=== PATIENT | female | born 2000 | race Caucasian/White ===

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

== ENCOUNTER 2020-01-11 20:39 | Inpatient (IN) | payer MEDICAID, SELFPAY ==
[2020-01-11 17:59] VITALS: BP 134/92; PULSE 96; RESP 18; TEMP 36.7; O2SAT 96; BMI 30.9
[2020-01-11 20:27] LABS: Basophils % 0.1 % (0.1-2.0); Eosinophils % 0.2 % (0.1-12.0); Hematocrit 42.5 % (37.0-47.0); Hemoglobin 14.2 g/dL (12.2-16.2); Lymphocytes # 1.1 K/mm3 (0.7-4.5); Lymphocytes % 10.8 % (10-50); MANUAL DIFFERENTIAL MANUAL DIFFERENTIAL (MANUAL DIFF); Mean Corpuscular HGB Conc 33.3 g/dL (31.8-35.4); Mean Corpuscular Hemoglobin 30.3 pg (27.0-31.2); Mean Corpuscular Volume 90.9 fl (81-99); Mean Platelet Volume 8.7 fl (7.4-10.4); Monocytes # 0.4 K/mm3 (0.1-1.0); Monocytes % 3.9 % (1.7-9.3); Platelet Count 308 K/mm3 (142-424); Red Blood Count 4.68 M/mm3 (4.20-5.40); Red Cell Distribution Width 13.9 % (11.5-17.5); White Blood Count 10.6 K/mm3 (4.5-13.0)
[2020-01-11 20:36] LABS: Lymphocytes % 12 % (10-50); Monocytes % 3 % (2-9); Neutrophils % 83 % (42-76); Platelet Estimate Normal; RBC Morphology Normal; Total Cells Counted 100
[2020-01-11 20:45] LABS: Coronavirus 19 IgG Antibody Negative (Negative); Coronavirus 19 IgM Antibody Negative (Negative)
[2020-01-11 21:04] VITALS: BP 146/87; PULSE 118; RESP 18; TEMP 37; O2SAT 98
[2020-01-11 21:41] VITALS: BMI 31.8
[2020-01-12 00:44] LABS: Appearance,Urine CLEAR (Clear); Bilirubin,Urine Negative (Negative); Blood, Urine Negative (Negative); Glucose,Urine (UA) Negative (Negative); Ketones,Urine Negative (Negative); Leukocyte Esterase,Urine Negative (Negative); Microscopic, Urine URINE MICROSCOPIC (MICROSCOPIC); Nitrate,Urine Negative (Negative); PH,Urine 6.5 (5.0-8.5); Protein,Urine TRACE (Negative); Urobilinogen,Urine 0.2 EU/dl (0.2)
[2020-01-12 00:46] LABS: Color,Urine Dark Yellow (Yellow)
[2020-01-12 00:51] LABS: Bacteria,Urine 1+ /lpf; Mucus,Urine 1+ /lpf
[2020-01-12 01:49] LABS: Opiate Screen,Urine Negative ng/ml (<300)
[2020-01-12 01:50] LABS: Phencyclidine Screen,Urine Negative ng/ml (<25)
[2020-01-12 02:00] LABS: Barbiturates Screen,Urine Negative ng/ml (<200)
[2020-01-12 02:01] LABS: Benzodiazepines Screen,Urine Negative ng/ml (<200)
[2020-01-12 02:02] LABS: Amphetamine/Metha Screen,Urine Negative ng/ml (<1000); Cocaine Screen,Urine Negative ng/ml (<300)
[2020-01-12 02:03] LABS: Methadone Screen,Urine Negative ng/ml (<300)
[2020-01-12 02:04] LABS: Cannabinoid Screen,Urine Negative ng/ml (<50)
--- NOTE | 2020-01-12 10:15 | HMH.HPDC ---
General - General Admission date:: 01/11/20 Discharge date: 01/12/20 (Left AMA) *Admission Date: 01/11/20 *Chief complaint: contractions *History of present illness: G1 @ 39 6/7 presented to OB triage for evaluation of abdominal pain/contractions, nausea and vomiting Upon assessment, she was having regular contractions q3-5 minutes with no vaginal bleeding or leakage of fluid Cervix 3/75/-2 and status reassuring overall but did show some mild variable decelerations She was admitted for observation with diagnosis of latent labor and advised of recommendation for augmentation of labor with IV pitocin beginning the following morning At 4am the following morning, the patient refused to allow nursing staff to examine her, and informed staff of her decision to leave the hospital because she wanted to labor at home naturally She was again advised that physician recommendation was to remain in hospital with continuous monitoring and IOL, which she refused care had been similarly affected over the past few weeks, with patient refusing to allow physician to examine her for cervical dilation/effacement She signed out of the hospital against medical advice on 01/11/21 around 4:30am [facility] History I have reviewed the patient's past medical history: Yes Medical History: Denies:: Diabetes Mellitus Type 1, Diabetes Mellitus Type 2 *Have you ever received a pneumonia vaccine?: No *Have you received a flu vaccine this season?: No Other Medical History: Reports: Other Laterality Cases: Right: Other Other Surgeries: No: Amputation: No Fractures: Yes - *Social History Smoking Status: Never smoker Alcohol Intake: never Substance Use Type: denies use *Occupational Status:: other *Travel in the last 8 weeks: None Family Hx:: Non-contributory Para: 0 Review of Systems - Review of Systems Review of systems:: pertinent systems reviewed and negative unless documented below - *Gastrointestinal Reports abdominal pain, Reports nausea, Reports vomiting - *Genitourinary Reports other (contractions) Exam Vital signs and Labs for Last 24 Hours: Temp Pulse Resp BP Pulse Ox 98.6 F 118 H 18 146/87 H 98 01/11/20 21:04 01/11/20 21:04 01/11/20 21:04 01/11/20 21:04 01/11/20 21:04 Laboratory Results - last 24 hr 01/11/20 19:49: WBC 10.6, RBC 4.68, Hgb 14.2, Hct 42.5, MCV 90.9, MCH 30.3, MCHC 33.3, RDW 13.9, Plt Count 308, MPV 8.7, Neut % (Auto) 85.0 H, Lymph % (Auto) 10.8, [place] % (Auto) 3.9, Eos % (Auto) 0.2, Baso % (Auto) 0.1, Neut # (Auto) 9.0 H, Lymph # (Auto) 1.1, [place] # (Auto) 0.4, Eos # (Auto) 0.0, Baso # (Auto) 0.0, Total Counted 100, Neutrophils % (Manual) 83 H, Band Neutrophils % 2.0, Lymphocytes % (Manual) 12, Monocytes % (Manual) 3, Platelet Estimate Normal, RBC Morphology Normal 01/11/20 19:49: SARS-CoV-2 IgG Ab (Rapid) Negative, SARS-CoV-2 IgM Ab (Rapid) Negative 01/11/20 19:49: Blood Type A Positive, Antibody Screen Negative 01/12/20 00:15: Urine Color Dark yellow, Urine Appearance Clear, Urine pH 6.5, Ur Specific [place] 1.020, Urine Protein Trace, Urine Glucose (UA) Negative, Urine Ketones Negative, Urine Blood Negative, Urine Nitrate Negative, Urine Bilirubin Negative, Urine Urobilinogen 0.2, Ur Leukocyte Esterase Negative, Urine WBC 3-5, Ur Squamous Epith Cells 3-5, Urine Bacteria 1+, Urine Mucus 1+ 01/12/20 00:15: Urine Opiates Screen Negative, Urine Methadone Screen Negative, Ur Barbituates Screen Negative, Ur Phencyclidine Scrn Negative, Ur Amphetamines Screen Negative, U Benzodiazepines Scrn Negative, Urine Cocaine Screen Negative, U Marijuana (THC) Screen Negative I & O for Last 24 hours: Intake & Output 01/09/20 01/10/20 01/11/20 01/12/20 11:59 11:59 11:59 11:59 Weight 203 lb - *Routine HEENT Exam Head: Present: normocephalic Eye: Present: EOMI ENT: Present: mucous membranes moist - *Routine Neck Exam Present: supple. Absent: lymphadenopathy - *Routine Respiratory Exam Pre
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
== END 2020-01-12 04:25 | disposition left against medical advice (07) | DRG 833 ==
LOC: OBOUT 20:41 → OB 20:41
PROVIDERS: Admitting Provider Obstetrics & Gynecology; Visit Provider Obstetrics & Gynecology
DX: O60.03 Preterm labor without delivery, third trimester (principal); Z3A.39 39 weeks gestation of pregnancy
CPT/HCPCS: 59025; 80305; 81001; 85007; 85025; 86328; 86850; 96360

== ENCOUNTER 2020-01-12 15:51 | Inpatient (IN) | payer MEDICAID, SELFPAY ==
[2020-01-12] VITALS (13 sets, daily range): BP systolic 136–159; BP diastolic 63–101; PULSE 99–111; RESP 18; TEMP 36.8; BMI 30.9; BMI 30.7
[2020-01-12 16:13] LABS: Fetal Membrane Rupture (Rapid) Positive (Negative)
--- NOTE | 2020-01-12 17:10 | HMH.OBAPHP ---
OB - H&P: HPI Antepartum - History of Present Illness Chief complaint: contractions History of present illness: 19 yo G1 @ 39 6/7 presented with complaint of contractions. Patient was admitted yesterday with contractions and elevated blood pressure, with recommendation for augmentation of labor She initially agreed to this plan but ultimately signed out advance medical advice 8 hours after admission, around 4:30 am today When she represented tonight, cervix 9cm and completely effaced, with BBOW Amniotomy was performed with thick meconium stained amniotic fluid FSE was placed without complication NST overall reassuring [facility] History I have reviewed the patient's past medical history: Yes Medical History: Denies:: Diabetes Mellitus Type 1, Diabetes Mellitus Type 2 *Have you ever received a pneumonia vaccine?: No *Have you received a flu vaccine this season?: No Other Medical History: Reports: Other Laterality Cases: Right: Other Other Surgeries: No: Amputation: No Fractures: Yes - *Social History Smoking Status: Never smoker Alcohol Intake: never Substance Use Type: denies use *Occupational Status:: other *Travel in the last 8 weeks: None Family Hx:: Non-contributory Review of Systems - Review of Systems Review of systems:: pertinent systems reviewed and negative unless documented below - *Genitourinary Reports other (contractions) Meds Home Medications Medication Instructions Recorded Confirmed Type Vit No.124/Iron/Folic 1 each PO DAILY 01/11/20 01/11/20 History [ Vitamin Tablet] Allergies Allergy/AdvReac Type Severity Reaction Status Date / Time No Known Allergies Allergy Verified 01/09/20 13:55 OB - H&P: Exam - Constitutional no acute distress - Routine HEENT Exam Head: Present: normocephalic, atraumatic Eye: Present: EOMI ENT: Present: mucous membranes moist - Routine Neck Exam Present: supple - Routine Respiratory Exam Present: CTA bilaterally. Absent: respiratory distress - Routine Cardiovascular Exam Present: RRR - Routine Abdominal Exam Present: soft. Absent: tenderness, distended - Routine Exam Comments: cervix 9/100/0 - Routine Extremities Exam Absent: edema - Routine Skin Exam Absent: rash - Routine Neurological Exam Present: alert, oriented X3 - Routine Psychiatric Exam Absent: normal affect Comments: Patient's affect is abnormal. She will not make eye contact with OB physician, Bull Gang Supervisor or nursing staff. She will only look at her , even while detailed questions are being asked of her, and she will not respond--prompting to respond for her. During labor, while pushing, at one point she said to her that she didn't want to push because she was afraid something would happen to him if she was focusing on pushing and not on him. Right before the delivery, a blanket was placed on her abdomen for the baby to be placed on while cutting umbilical cord, and she jerked back with alarm, stating I don't want him on me! She refused to hold the baby after delivery and when the nurse asked whether mother or father wanted to feed the baby, the patient refused to look at the nurse and the said you can do it to the nurse. Mother shows no interest in her baby and there is a significant and concerning inability to acknolwedge any care providers or anyone in the room other than her . Also of note, she refused to allow the OB physician to examine her during visits for the past 3 weeks, stating that she and her were old fashioned and she thought it was unnatural for the physician to do a pelvic exam. OB - A/P Antepartum (1) 39 weeks gestation of Status: Acute (2) Teen Status: Acute (3) Left against medical advice Status: Acute (4) Active labor at term Status: Acute (5) Inadequate bonding with Status: Acute - Ad
--- NOTE | 2020-01-12 18:06 | HMH.DN ---
- Delivery Note Delivery Date:: 01/12/20 Delivery Time:: 14:42 Anesthesia Type: None Was labor medically induced?: No Infant delivered prior to 39 weeks?: No Gender: Male at 1 minute: 8 at 5 minutes: 9 Delivery Procedure:: Vacuum assisted vaginal delivery of liveborn male over intact perineum. Indication for operative vaginal delivery: heart rate decelerations with ineffective maternal pushing Vacuum applied to vertex at +2 station. Infant delivered in single nail puller one contraction, using vacuum in standard fashion. Apgars: 8 & 9 Mild shoulder dystocia noted lasting 15 seconds and resolved with suprapubic pressure and Narendra placed immediately on maternal abdomen for nursing assessment & GASTON immediately after umbilical cord clamped/cut Placenta spontaneously expressed and examined; noted to be complete/intact Vaginal sulcus laceration on maternal left repaired with 2-0 vicryl EBL: 400cc All sponge/needle/instrument counts correct at conclusion of procedure Disposition: Mother stable to recovery. Infant brought to nursing station for observation. Laceration:: vaginal Placental Delivery Description: Spontaneous
[2020-01-12 18:52] LABS: Basophils % 0.2 % (0.1-2.0); Hematocrit 39.9 % (37.0-47.0); Hemoglobin 13.5 g/dL (12.2-16.2); Lymphocytes # 0.9 K/mm3 (0.7-4.5); Lymphocytes % 5.9 % (10-50); Mean Corpuscular HGB Conc 33.9 g/dL (31.8-35.4); Mean Corpuscular Hemoglobin 30.4 pg (27.0-31.2); Mean Corpuscular Volume 89.8 fl (81-99); Mean Platelet Volume 8.9 fl (7.4-10.4); Monocytes # 0.3 K/mm3 (0.1-1.0); Monocytes % 2.2 % (1.7-9.3); Neutrophils # 13.9 K/mm3 (1.8-7.8); Neutrophils % 91.8 % (37.0-80.0); Platelet Count 296 K/mm3 (142-424); Red Blood Count 4.45 M/mm3 (4.20-5.40); Red Cell Distribution Width 14.2 % (11.5-17.5); White Blood Count 15.1 K/mm3 (4.5-13.0)
[2020-01-12 18:54] LABS: MANUAL DIFFERENTIAL MANUAL DIFFERENTIAL (MANUAL DIFF)
[2020-01-12 19:20] LABS: Magnesium 1.9 mg/dl (1.6-2.3)
[2020-01-12 19:24] LABS: D-Dimer 2.95 ug/mL (0.15-8.0)
[2020-01-12 19:37] LABS: Alanine Aminotransferase 62 U/L (12-78); Anion Gap 10.1 mEq/L (5-15); Aspartate Amino Transferase 64 U/L (14-36); Blood Urea Nitrogen 10 mg/dl (7-17); Calcium 9.3 mg/dl (8.4-10.2); Carbon Dioxide 22 mmol/L (22.0-30.0); Chloride 106 mmol/L (98-107); Creatinine Clearance Estimated 219 mL/min (50-200); Estimated Glomerular Filt Rate 129 ml/min (>60); GFR (African American) 156 ML/MIN (>60); Glucose 89 mg/dl (74-100); Potassium 4.1 mmoL/L (3.5-5.1); Sodium 134 mmol/L (136-145); Uric Acid 5.8 mg/dl (2.5-6.2)
[2020-01-12 19:46] LABS: Activated Partial Thrombo Time 22.2 seconds (23.6-34.0); INR 0.98 (0.9-1.1); Prothrombin Time 10.9 seconds (9.4-11.8)
[2020-01-12 19:47] LABS: Fibrinogen 414 mg/dL (204-500)
[2020-01-12 20:07] LABS: Lymphocytes % 6 % (10-50); Monocytes % 5 % (2-9); Neutrophils % 89 % (42-76); Platelet Estimate Normal; Total Cells Counted 100
[2020-01-12 20:08] LABS: RBC Morphology Normal
[2020-01-12 22:40] LABS: Hematocrit 37.6 % (37.0-47.0); Hemoglobin 12.8 g/dL (12.2-16.2)
[2020-01-13] VITALS (25 sets, daily range): BP systolic 117–143; BP diastolic 70–96; PULSE 83–118; RESP 18–20; TEMP 36.7–36.8; O2SAT 99–100
[2020-01-13 02:03] LABS: Microscopic, Urine URINE MICROSCOPIC (MICROSCOPIC)
[2020-01-13 04:00] LABS: Appearance,Urine CLEAR (Clear); Bilirubin,Urine Negative (Negative); Blood, Urine 3+ (Negative); Color,Urine YELLOW (Yellow); Glucose,Urine (UA) Negative (Negative); Ketones,Urine Negative (Negative); Leukocyte Esterase,Urine TRACE (Negative); Nitrate,Urine Negative (Negative); Protein,Urine 1+ (Negative); Specific Gravity, Urine 1.025 (1.005-1.030)
[2020-01-13 04:11] LABS: Barbiturates Screen,Urine Negative ng/ml (<200)
[2020-01-13 04:12] LABS: Amphetamine/Metha Screen,Urine Negative ng/ml (<1000); Benzodiazepines Screen,Urine Negative ng/ml (<200)
[2020-01-13 04:13] LABS: Methadone Screen,Urine Negative ng/ml (<300)
[2020-01-13 04:14] LABS: Cannabinoid Screen,Urine Negative ng/ml (<50); Cocaine Screen,Urine Negative ng/ml (<300)
[2020-01-13 04:16] LABS: Opiate Screen,Urine Negative ng/ml (<300); Phencyclidine Screen,Urine Negative ng/ml (<25)
[2020-01-13 04:33] LABS: Bacteria,Urine 1+ /lpf
--- NOTE | 2020-01-13 08:16 | HMH.ACPN2 ---
Internal Medicine - PN: Subj *Date: 01/13/20 *Time: 08:16 (This is day #1. The patient is afebrile. Her vital signs are stable, but her blood pressure is still elevated at 133/97. Deep tendon reflexes are normal and PIH labs are normal. Abdomen is soft. Uterine fundus is involuting well. Her lochia is now normal (minimal bleeding). Her hemoglobin at 2200 yesterday was stable at 12.8 g. This morning's hemoglobin has not yet been drawn. She appears clinically stable. She continues to have a flat affect, and psych social worker is due to see her today. The baby (10 pounds 5 ounces) is doing well. Bottlefeeding.) Exam Vital signs and Labs for Last 24 Hours: Temp Pulse Resp BP 98.3 F 85 18 121/73 01/12/20 22:13 01/13/20 06:24 01/12/20 22:13 01/13/20 06:24 Laboratory Results - last 24 hr 01/12/20 01:00: Urine Opiates Screen Negative, Urine Methadone Screen Negative, Ur Barbituates Screen Negative, Ur Phencyclidine Scrn Negative, Ur Amphetamines Screen Negative, U Benzodiazepines Scrn Negative, Urine Cocaine Screen Negative, U Marijuana (THC) Screen Negative 01/12/20 15:55: Membrane Rupture Positive A 01/12/20 18:20: Blood Type A Positive, Antibody Screen Negative, Crossmatch (AHG) See Detail 01/12/20 18:20: WBC 15.1 H D, RBC 4.45, Hgb 13.5, Hct 39.9, MCV 89.8, MCH 30.4, MCHC 33.9, RDW 14.2, Plt Count 296, MPV 8.9, Neut % (Auto) 91.8 H, Lymph % (Auto) 5.9 L, [place] % (Auto) 2.2, Eos % (Auto) 0.0 L, Baso % (Auto) 0.2, Neut # (Auto) 13.9 H, Lymph # (Auto) 0.9, [place] # (Auto) 0.3, Eos # (Auto) 0.0, Baso # (Auto) 0.0, Total Counted 100, Neutrophils % (Manual) 89 H, Lymphocytes % (Manual) 6 L, Monocytes % (Manual) 5, Platelet Estimate Normal, RBC Morphology Normal 01/12/20 19:00: PT 10.9, INR 0.98, APTT 22.2 L, Fibrinogen 414 01/12/20 19:00: D-Dimer 2.95, Sodium 134 L, Potassium 4.1, Chloride 106, Carbon Dioxide 22, Anion Gap 10.1, BUN 10, Creatinine 0.60, Estimated Creat Clear 219, Estimated GFR 129, Est GFR ( Amer) 156, Glucose 89, Uric Acid 5.8, Calcium 9.3, AST 64 H, ALT 62 01/12/20 19:00: Magnesium 1.9 01/12/20 22:22: Hgb 12.8, Hct 37.6 01/13/20 01:00: Urine Color Yellow, Urine Appearance Clear, Urine pH 7.0, Ur Specific [place] 1.025, Urine Protein 1+, Urine Glucose (UA) Negative, Urine Ketones Negative, Urine Blood 3+, Urine Nitrate Negative, Urine Bilirubin Negative, Urine Urobilinogen 1.0, Ur Leukocyte Esterase Trace, Urine RBC 10-20, Urine WBC 3-5, Urine Bacteria 1+ I & O for Last 24 hours: Intake & Output 01/10/20 01/11/20 01/12/20 01/13/20 11:59 11:59 11:59 11:59 Weight 202 lb 13.204 oz Assessment and Plan (1) 39 weeks gestation of Status: Acute Category: Medical Code(s): Z3A.39 - 39 weeks gestation of (2) Teen Status: Acute Category: Medical (3) Left against medical advice Status: Acute Category: Medical Code(s): Z53.29 - Procedure and treatment not carried out because of patient's decision for other reasons (4) Active labor at term Status: Acute Category: Medical (5) Inadequate bonding with Status: Acute Category: Medical Code(s): Z62.898 - Other specified problems related to upbringing
[2020-01-13 10:20] LABS: Hemoglobin 12.7 g/dL (12.2-16.2)
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
[2020-01-13 14:48] LABS: Microscopic, Urine URINE MICROSCOPIC (MICROSCOPIC)
[2020-01-13 14:51] LABS: Appearance,Urine CLOUDY (Clear); Bilirubin,Urine Negative (Negative); Blood, Urine 3+ (Negative); Color,Urine RED (Yellow); Glucose,Urine (UA) Negative (Negative); Ketones,Urine Negative (Negative); Leukocyte Esterase,Urine TRACE (Negative); Nitrate,Urine Negative (Negative); PH,Urine 6.5 (5.0-8.5); Protein,Urine 1+ (Negative); Specific Gravity, Urine >= 1.030 (1.005-1.030); Urobilinogen,Urine 0.2 EU/dl (0.2)
[2020-01-13 14:59] LABS: RBC,Urine 20-50 #/hpf (0-3)
[2020-01-14] VITALS (10 sets, daily range): BP systolic 116–161; BP diastolic 70–102; PULSE 67–88; RESP 16–20; TEMP 36.6–37.1; O2SAT 99–100
--- NOTE | 2020-01-14 07:22 | P.PN_ITS ---
Internal Medicine - PN: Subj *Date: 01/14/20 *Time: 07:22 (This is day #2. The patient is afebrile. Her vital signs are stable. Her magnesium sulfate has been discontinued, as her blood pressures are in the 130s over 80s. DTRs are normal. Care management is due to see the patient today, and she will be observed with regard to her blood pressure.) Exam Vital signs and Labs for Last 24 Hours: Temp Pulse Resp BP Pulse Ox 98.5 F 67 16 131/85 99 01/14/20 04:59 01/14/20 04:59 01/14/20 04:59 01/14/20 04:59 01/14/20 04:59 Laboratory Results - last 24 hr 01/13/20 09:45: Hgb 12.7, Hct 38.0 01/13/20 09:45: Magnesium 6.0 H D 01/13/20 12:20: Urine Color Red, Urine Appearance Cloudy, Urine pH 6.5, Ur Specific [place] >= 1.030, Urine Protein 1+, Urine Glucose (UA) Negative, Urine Ketones Negative, Urine Blood 3+, Urine Nitrate Negative, Urine Bilirubin Negative, Urine Urobilinogen 0.2, Ur Leukocyte Esterase Trace, Urine RBC 20-50, Urine WBC 3-5, Ur Squamous Epith Cells 3-5 I & O for Last 24 hours: Intake & Output 01/11/20 01/12/20 01/13/20 01/14/20 11:59 11:59 11:59 11:59 Weight 202 lb 13.204 oz Assessment and Plan (1) 39 weeks gestation of Status: Acute Category: Medical Code(s): Z3A.39 - 39 weeks gestation of (2) Teen Status: Acute Category: Medical (3) Left against medical advice Status: Acute Category: Medical Code(s): Z53.29 - Procedure and treatment not carried out because of patient's decision for other reasons (4) Active labor at term Status: Acute Category: Medical (5) Inadequate bonding with Status: Acute Category: Medical Code(s): Z62.898 - Other specified problems related to upbringing
[2020-01-15 00:17] VITALS: BP 116/82; PULSE 78; RESP 18; TEMP 36.8; O2SAT 99
[2020-01-15 04:56] VITALS: BP 130/80; PULSE 81; RESP 16; TEMP 36.8; O2SAT 99
[2020-01-15 08:01] VITALS: BP 128/89; PULSE 88; RESP 20; TEMP 36.8; O2SAT 98
--- NOTE | 2020-01-15 13:31 | HMH.DCSUM ---
General - General Admission date:: 01/12/20 Discharge date: 01/15/20 Hospital Course Hospital Course: patient admitted in active labor with cervix 9cm and BBOW, as detailed in H&P Vacuum assisted vaginal delivery of 10# 5oz infant Intrapartum and course noted concern for maternal and paternal bonding with infant care management and social research assistant have done initial evaluation and assessment states that infant may be discharged home with the parents course complicated by elevated maternal blood pressure and she was started on magnesium sulfate and po labetolol blood pressures are currently under good control with labeolol and she will be discharged with this Tolerating regular diet, ambulating and voiding without difficulty Rhogam Administration: Not Indicated Objective Vital signs: Temp Pulse Resp BP Pulse Ox 98.2 F 88 20 128/89 98 01/15/20 08:01 01/15/20 08:01 01/15/20 08:01 01/15/20 08:01 01/15/20 08:01 Narrative: CONSTITUTIONAL: no acute distress HEENT: mucous membranes moist PULMONARY: breathing unlabored without audible wheezes CV: no tachycardia or visible JVD; normal LE peripheral pulses ABD: soft, NT/ND, no guarding : fundus firm at/below umbilicus SKIN: no visible rash or lesions EXT: 1+ edema LEs NEURO: alert/oriented, no altered mental status PSYCH: affect more normal today, with patient making eye contact and responding directly to physician's questions DS: Diagnosis - Discharge Diagnosis (1) 39 weeks gestation of Status: Acute (2) Teen Status: Acute (3) Left against medical advice Status: Acute (4) Active labor at term Status: Acute (5) Inadequate bonding with Status: Acute Discharge Plan - Patient Discharge Instructions ACTIVITY: Continue current activity DIET: regular diet - Follow up Plan Disposition: Home, Self-[facility] Medications: Home Medications Medication Instructions Recorded Confirmed Type Vit No.124/Iron/Folic 1 each PO DAILY 01/11/20 01/12/20 History [ Vitamin Tablet] Labetalol HCl [Normodyne 100mg 200 mg PO TID #120 tab 01/15/20 Rx tablet] Prescriptions/Medication Reconciliation: New Ibuprofen [Motrin 400mg tablet] 800 mg PO Q6HP PRN tablet PRN Reason: Mild To Moderate Pain Labetalol HCl [Normodyne 100mg tablet] 200 mg PO TID #120 tab Acetaminophen [Acetaminophen 325mg tab] 650 mg PO Q4HP PRN tablet PRN Reason: Mild Pain Continued Vit No.124/Iron/Folic [ Vitamin Tablet] 1 each PO DAILY - Problem Reconciliation Problems Reviewed?: Yes
== END 2020-01-15 18:25 | disposition home or self-care (01) | DRG 807 ==
LOC: OBOUT 15:51 → OB 15:51
PROVIDERS: Nurse Practitioner Obstetrics & Gynecology; Obstetrics & Gynecology; Admitting Provider Obstetrics & Gynecology; PCP Obstetrics & Gynecology; Visit Provider Obstetrics & Gynecology
DX: O70.0 First degree perineal laceration during delivery (principal); Z37.0 Single live birth; Z3A.39 39 weeks gestation of pregnancy
CPT/HCPCS: 59409; 36415; 59025; 80048; 80305; 81001; 83735; 84112; 84450; 84460; 84550; 85007; 85014; 85018; 85025; 85378; 85384; 85610; 85730; 86850

== ENCOUNTER 2022-06-01 20:59 | Emergency (ER) | payer MEDICAID, SELFPAY ==
[2022-06-01 21:07] VITALS: BP 124/73; PULSE 72; RESP 14; TEMP 36.8; O2SAT 99; BMI 25.0
--- NOTE | 2022-06-01 21:11 | CT_ITS ---
PROCEDURE INFORMATION: Exam: CT Abdomen And Pelvis With Contrast Exam date and time: 06/01/2022 9:59 PM Age: 21 years old Clinical indication: Other: Bloody stools; Abdominal pain TECHNIQUE: Imaging protocol: Computed tomography of the abdomen and pelvis with contrast. Radiation optimization: All CT scans at this facility use at least one of these dose optimization techniques: automated exposure control; mA and/or kV adjustment per patient size (includes targeted exams where dose is matched to clinical indication); or iterative reconstruction. Contrast material: ISOVUE; Contrast volume: 75 ml; Contrast route: IV; REPORTING DATA: Count of CT and Cardiac NM exams in prior 12 months: This patient has received 0 known CTs and 0 known cardiac nuclear medicine studies in the 12 months prior to the current study. COMPARISON: US OB /MATERNAL DETAIL 08/30/2019 1:41 PM FINDINGS: Liver: Unremarkable. Gallbladder and bile ducts: Unremarkable. Pancreas: Unremarkable. Spleen: Unremarkable. Adrenal glands: Unremarkable. Kidneys and ureters: Unremarkable. Stomach and bowel: Unremarkable. Appendix: Appendix is visualized and is normal. Intraperitoneal space: Trace simple, low-density free fluid in the pelvis, likely physiologic. No pneumoperitoneum. Vasculature: Unremarkable. Lymph nodes: Unremarkable. Urinary bladder: Unremarkable. Reproductive: Right ovary contains a corpus luteum. CT appearance of reproductive organs is otherwise unremarkable. 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 No evidence of acute osseous abnormality. Soft tissues: Unremarkable. IMPRESSION: 1. No acute findings in the abdomen or pelvis. 2. 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
[2022-06-01 21:18] VITALS: BP 145/91; PULSE 92; O2SAT 100
[2022-06-01 21:19] VITALS: BP 137/89; PULSE 99; O2SAT 100
[2022-06-01 21:23] VITALS: BP 137/89; BP 139/92; BP 145/91; PULSE 102; PULSE 89; PULSE 94
[2022-06-01 21:25] LABS: Microscopic, Urine URINE MICROSCOPIC (MICROSCOPIC)
[2022-06-01 21:26] LABS: Basophils # 0.1 K/mm3 (0-0.2); Basophils % 0.7 % (0.1-2.0); Eosinophils # 0.4 K/mm3 (0.0-0.4); Eosinophils % 4.8 % (0.1-12.0); Hematocrit 43.1 % (37.0-47.0); Hemoglobin 14.2 g/dL (12.2-16.2); Lymphocytes % 23.2 % (10-50); Mean Corpuscular HGB Conc 33.1 g/dL (31.8-35.4); Mean Corpuscular Hemoglobin 29.6 pg (27.0-31.2); Mean Corpuscular Volume 89.6 fl (81-99); Mean Platelet Volume 7.4 fl (7.4-10.4); Monocytes # 0.4 K/mm3 (0.1-1.0); Monocytes % 4.4 % (1.7-9.3); Neutrophils # 5.6 K/mm3 (1.8-7.8); Neutrophils % 66.8 % (37.0-80.0); Platelet Count 304 K/mm3 (142-424); Red Blood Count 4.81 M/mm3 (4.20-5.40); Red Cell Distribution Width 13.5 % (11.5-17.5); White Blood Count 8.4 K/mm3 (4.8-10.8)
[2022-06-01 21:37] LABS: Alanine Aminotransferase 17 U/L (12-78); Albumin Level 4.7 g/dl (3.5-5.0); Albumin/Globulin Ratio 1.5 (1.1-1.8); Alkaline Phosphatase 84 U/L (38-126); Amylase 110 U/L (30-110); Anion Gap 12.7 mEq/L (5-15); Aspartate Amino Transferase 28 U/L (14-36); Bilirubin,Total 0.4 mg/dl (0.2-1.3); Blood Urea Nitrogen 8 mg/dl (7-17); Calcium 9.1 mg/dl (8.4-10.2); Carbon Dioxide 27 mmol/L (22.0-30.0); Chloride 103 mmol/L (98-107); Creatinine Clearance Estimated 146 mL/min (50-200); Estimated Glomerular Filt Rate 106 ml/min (>60); GFR (African American) 128 ML/MIN (>60); Globulin 3.1 g/dL (1.3-3.2); Glucose 85 mg/dl (74-100); Lipase 126 U/L (23-300); Potassium 3.7 mmoL/L (3.5-5.1); Sodium 139 mmol/L (136-145); Total Protein,Serum 7.8 g/dl (6.3-8.2)
[2022-06-01 21:43] LABS: C-Reactive Protein 0.5 mg/L (0-4)
[2022-06-01 21:49] LABS: Appearance,Urine CLEAR (Clear); Bilirubin,Urine Negative (Negative); Blood, Urine Negative (Negative); Color,Urine YELLOW (Yellow); Glucose,Urine (UA) Negative (Negative); Ketones,Urine Negative (Negative); Leukocyte Esterase,Urine 2+ (Negative); Nitrate,Urine Negative (Negative); Protein,Urine Negative (Negative); Specific Gravity, Urine <= 1.005 (1.005-1.030); Urobilinogen,Urine 0.2 EU/dl (0.2)
[2022-06-01 21:51] LABS: Urine Pregnancy, HCG Qual. Negative (Negative)
[2022-06-01 21:57] LABS: Procalcitonin 0.055 ng/mL (0.0-2.0)
[2022-06-01 22:03] LABS: Amorphous Sediment,Urine 2+ /lpf; Bacteria,Urine Trace /lpf; RBC,Urine Occasional #/hpf (0-3)
[2022-06-01 22:08] LABS: Erythrocyte Sedimentation Rate 14 mm/hr (0-20)
--- NOTE | 2022-06-01 23:41 | HMH.EDABDPAI ---
Discharge Plan Disposition Patient Disposition: Home, Self-Care Prescriptions Prescriptions: New pantoprazole [Protonix] 40 mg tablet,delayed release (DR/EC) 40 mg PO DAILY 28 Days Qty: 28 0RF Referrals Follow up/Referrals: Provider,MD Stella [Primary Care Provider] - See instructions Prashant Land MD [Staff Physician] - See instructions Clinical Impressions Clinical Impression: Abdominal pain, PRB (rectal bleeding) Instructions Patient Instructions: DI for Acute Abdominal Pain Discharge ED Provider: Abisai (ED)Delmer Abdominal Pain HPI General Chief Complaint: Abdominal Pain Stated Complaint: Bloody Stool, Nausea, Some abdominal pain Time Seen by Provider: 06/01/22 23:41 Mode of Arrival: Family Vehicle Source of Information: Patient and Medical Record Limitations: No Limitations Description of Symptoms (Recalled from ER Triage Doc. by RN): 21 YO FEMALE WITH MID-EPIGASTRIC PAIN AND LOW ABD PAIN THROUGHOUT DAY TODAY; NO PREVIOUS HISTORY. STATES SHE HAD A BOWEL MOVEMENT ABOUT 30 MINS AGO AND NOTED A LARGE AMOUNT OF BRIGHT RED BLOOD IN HER STOOL. nO PREVIOUS HEMORRHOID HISTORY. SEXUALLY ACTIVE, LMP X3 WEEKS PRIOR. AFEBRILE. History of Present Illness HPI narrative: upper abd pain over the last few weeks - has gerd sx - and episode of brrb in stool complaint: abdominal pain Onset (ago): day(s) Consistency: intermittent Location: epigastric Severity: moderate Associated symptoms: denies other symptoms Related Data Previous Rx's Medication Instructions Recorded pantoprazole 40 mg tablet,delayed 40 mg PO DAILY 4 weeks #28 tabs 06/01/22 release (Protonix) Allergies Allergy/AdvReac Type Severity Reaction Status Date / Time No Known Allergies Allergy Verified 02/19/20 13:45 [facility] Disclaimer: The information contained in this section may have been updated after the patient was seen, as this information can be updated by other users. Social History Smoking Status: Never smoker second hand exposure: No alcohol intake: never substance use type: denies use current occupational status: unemployed Travel in the last 8 weeks: None ROS Obtained: Yes All systems reviewed & no additional complaints except as documented Physical Exam General General appearance: alert Head Head exam: normocephalic Eye Eye exam: Present PERRL and EOMI; Absent scleral icterus ENT ENT exam: Present mucous membranes moist Neck Neck exam: Present trachea midline Respiratory Respiratory exam: Present normal lung sounds bilaterally; Absent respiratory distress Cardiovascular Cardiovascular exam: Present regular rate Abdominal Exam Abdominal exam: Present soft and tenderness; Absent guarding or rebound Abdominal tenderness: Present epigastrium and mild Extremities Exam Extremities exam: Present full ROM Neurological Exam Neurological exam: Present alert, oriented X3 and CN II-XII intact; Absent motor sensory deficit Psychiatric Psychiatric exam: Present normal affect Skin Skin exam: Absent rash Medical Decision Making Medical Records Medical records reviewed: Yes I reviewed the patient's medical records. Wilder Inquiry Pt receiving controlled substance: No Vital Signs: 06/01/22 21:07 06/01/22 21:23 06/01/22 21:18 Temperature 98.2 F Temperature Source Oral Pulse Rate 92 H Pulse Rate [Orthostatic Lying Left] 89 Pulse Rate [Orthostatic Sitting Left] 102 H Pulse Rate [Orthostatic Standing Left] 94 H Pulse Rate [Right Brachial] 72 Respiratory Rate 14 Blood Pressure 145/91 H Blood Pressure [Orthostatic Lying Left Arm] 139/92 H Blood Pressure [Orthostatic Sitting Left Arm] 145/91 H Blood Pressure [Orthostatic Standing Left Arm] 137/89 Blood Pressure [Right Arm] 124/73 Blood Pressure Mean [Right Arm] 90 Blood Pressure Source [Right Arm] Automatic Cuff Blood Pressure Position [Right Arm] Sitting 02 Sat by Pulse Oximetry 99 100 Oxygen Delivery Met
[2022-06-02 00:03] VITALS: BP 134/78; PULSE 91; RESP 16; TEMP 36.8; O2SAT 99
== END 2022-06-02 00:05 | disposition home or self-care (01) ==
PROVIDERS: Emergency Provider Emergency Medicine
DX: R10.13 Epigastric pain (principal); K92.1 Melena
CPT/HCPCS: 74177; 80053; 81001; 81025; 82150; 83690; 84145; 85025; 85651; 86140; 87086; 96360; 96374; 96375; 99284; 99285; Q9967

== ENCOUNTER 2022-11-22 12:49 | Emergency (ER) | payer MEDICAID, SELFPAY ==
[2022-11-22 13:01] VITALS: BMI 19.3
[2022-11-22 13:10] VITALS: PULSE 77; RESP 18; TEMP 36.6; O2SAT 100; BMI 19.3
[2022-11-22 13:22] VITALS: BP 0/0; PULSE 77; RESP 18; TEMP 36.6; O2SAT 100
== END 2022-11-22 13:25 | disposition home or self-care (01) ==
PROVIDERS: Emergency Provider Nurse Practitioner; PCP Pediatrics
DX: Z23 Encounter for immunization (principal)
CPT/HCPCS: 96372; 99212; G0463

== ENCOUNTER 2023-02-26 12:45 | Outpatient (CLI) | payer MEDICAID, SELFPAY ==
--- NOTE | 2023-02-26 12:45 | MR_ITS ---
PROCEDURE INFORMATION: Exam: MR Head Without Contrast Exam date and time: 02/26/2023 12:59 PM Age: 22 years old Clinical indication: Condition or disease; Other: Brain cyst; Additional info: Known arachnoid cyst TECHNIQUE: Imaging protocol: Magnetic resonance imaging of the head without contrast. COMPARISON: BRAINWW MR head/brain wo/w con 09/01/2017 1:07 PM FINDINGS: Brain: Redemonstration of circumscribed right temporal lobe arachnoid cyst anterior to the right temporal lobe resulting in some superior-posterior displacing the right temporal lobe unchanged. Cyst is relatively stable in size measuring approximately 6.0 x 5.5 x 5.0 cm. Cyst abuts the right lateral wall of the right orbit and lateral aspect of the right cavernous sinus unchanged. There is no significant interval changes detected. No other masses detected. Diffusion-weighted images are unremarkable. No evidence of intracerebral hemorrhage. Remainder the cortical sulci are unremarkable for age. Cerebral ventricles: Normal. No ventriculomegaly. Bones/joints: Unremarkable. Paranasal sinuses: Normal as visualized. No acute sinusitis. Mastoid air cells: Normal as visualized. No mastoid effusion. Orbital cavities: Unremarkable. Soft tissues: Unremarkable. IMPRESSION: Stable appearance of right anterior temporal lobe arachnoid cyst measuring approximately 6.0 x 5.5 x 5.0 cm with some mass effect upon the right temporal lobe, unchanged.
== END 2023-02-26 23:59 ==
LOC: RAD 12:45
PROVIDERS: PCP Pediatrics; Visit Provider Nurse Practitioner Family
DX: G93.0 Cerebral cysts (principal); R56.9 Unspecified convulsions; O09.32 Supervision of pregnancy with insufficient antenatal care, second trimester; Z3A.22 22 weeks gestation of pregnancy
CPT/HCPCS: 70551

== ENCOUNTER 2023-03-11 15:36 | Outpatient (CLI) | payer MEDICAID, SELFPAY ==
[2023-03-11 16:14] LABS: Basophils % 0.5 % (0.1-2.0); Eosinophils # 0.2 K/mm3 (0.0-0.4); Eosinophils % 2.5 % (0.1-12.0); Hematocrit 33.4 % (37.0-47.0); Hemoglobin 11.2 g/dL (12.2-16.2); Lymphocytes # 1.7 K/mm3 (0.7-4.5); Lymphocytes % 24.2 % (10-50); Mean Corpuscular HGB Conc 33.5 g/dL (31.8-35.4); Mean Corpuscular Hemoglobin 27.8 pg (27.0-31.2); Mean Platelet Volume 8.2 fl (7.4-10.4); Monocytes # 0.3 K/mm3 (0.1-1.0); Monocytes % 4.9 % (1.7-9.3); Neutrophils # 4.7 K/mm3 (1.8-7.8); Neutrophils % 67.8 % (37.0-80.0); Platelet Count 305 K/mm3 (142-424); Red Blood Count 4.02 M/mm3 (4.20-5.40); Red Cell Distribution Width 14.9 % (11.5-17.5); White Blood Count 6.9 K/mm3 (4.8-10.8)
[2023-03-11 16:29] LABS: Hemoglobin A1C 4.8 % (4.0-6.0)
[2023-03-11 17:24] LABS: Amphetamine/Metha Screen,Urine Negative ng/ml (<1000); Barbiturates Screen,Urine Negative ng/ml (<200)
[2023-03-11 17:25] LABS: Benzodiazepines Screen,Urine Negative ng/ml (<200)
[2023-03-11 17:26] LABS: Cannabinoid Screen,Urine Negative ng/ml (<50); Cocaine Screen,Urine Negative ng/ml (<300)
[2023-03-11 17:27] LABS: Methadone Screen,Urine Negative ng/ml (<300); Opiate Screen,Urine Negative ng/ml (<300)
[2023-03-11 17:28] LABS: Phencyclidine Screen,Urine Negative ng/ml (<25)
[2023-03-12 07:12] LABS: Rubella Antibodies, IgG 5.96 index (Immune >0.99)
[2023-03-12 09:15] LABS: Rapid Plasma Reagin Ab Titer Non Reactive titer (NonRea<1:1)
[2023-03-14 08:12] LABS: Neisseria gonorrhoeae, NAA Negative (Negative)
[2023-03-16 12:21] LABS: HIV Screen 4th Generation wRfx Non Reactive
[2023-03-16 12:22] LABS: Hepatitis B Surface Antigen Negative; Hepatitis C Antibody Non Reactive
== END 2023-03-11 23:59 ==
LOC: LAB 15:37
PROVIDERS: PCP Pediatrics; Visit Provider Obstetrics & Gynecology
DX: Z3A.35 35 weeks gestation of pregnancy; O26.893 Other specified pregnancy related conditions, third trimester; O09.33 Supervision of pregnancy with insufficient antenatal care, third trimester
CPT/HCPCS: 36415; 80307; 83036; 85025; 86593; 86703; 86762; 86850; 87086; 87340; 87380; 87491; 87591; G0432

== ENCOUNTER 2023-03-17 12:52 | Outpatient (CLI) | payer MEDICAID, SELFPAY ==
--- NOTE | 2023-03-17 12:52 | US_ITS ---
PROCEDURE: US OB /MATERNAL DETAIL CLINICAL INDICATION: complete anatomy scan, and dates. COMPARISON: No exams were available for comparison FINDINGS: Transabdominal sonographic images of the pelvis were obtained. From her established due date she is 36 weeks 3 days. Single viable intrauterine gestation. Cephalic position. Placenta: Posteriorplacenta grade 2. There is an average amount of fluid. KAREN 6.82 cm, MVP 3.90 cm. The cervix appears satisfactory. Closed and measuring 2.8 cm in length. Complete survey performed and was unremarkable on the submitted images as in PACS. No discrete anomalies identified on survey imaging by technologist. Active fetus. breathing movement was seen. Three-vessel cord with satisfactory umbilical cord insertion. 4- chamber heart noted. Situs, aortic arch, LVOT, three-vessel view appear normal. Survey of brain & ventricles Unremarkable. Specific anatomy was not well visualized. Face and neck survey unremarkable. Profile, nasion, lips and nose appeared normal. Diaphragm and chest views unremarkable. Abdomen: Both kidneys noted and unremarkable. Stomach and bladder noted and satisfactory. Spine: Survey of the spine satisfactory with no anomalies identified nor imaged. Cervical, thoracic, lower spine appear normal. Both arms and legs noted. Amniotic Fluid: Adequate. Measurements: Average ultrasound age 36weeks 2days. Estimated due date by ultrasound age 0304/12/2023. Estimated weight 2,759g, 6 lb 1 oz BPD = 36weeks 3days, 61 percentile HC = 36weeks 6days, 30 percentile AC = 35weeks 3days, 30 percentile, FL = 36weeks 0 days, 33 percentile Growth Percentile= 34 Heart Rate = 136bpm Humerus = 36weeks 0 days, 61 percentile HC/AC is 1.04 FL/BPD is 0.78 FL/AC is 0.22 IMPRESSION: 1. Viable fetus in the cephalic presentation with a posterior placenta grade 2. 2. The fluid is within normal limits with an amniotic fluid index of 6.82 cm, MVP 3.90 cm. Subjectively the fluid looks low. Suggest follow-up in 1-2 weeks. 3. Anatomical scan appears normal. It was limited due to the late presentation, difficult examination. 4. biometry is consistent with the dates. 5. Complete biophysical profile was not done but there is movement and breathing movement seen. Dictated by: Tucker Lopez MD 03/17/2023 15:05 Tucker Lopez MD in [place] 03/17/2023 15:05
== END 2023-03-17 23:59 ==
LOC: RAD 12:52
PROVIDERS: PCP Pediatrics; Visit Provider Obstetrics & Gynecology
DX: O09.33 Supervision of pregnancy with insufficient antenatal care, third trimester (principal); Z36.89 Encounter for other specified antenatal screening; Z3A.35 35 weeks gestation of pregnancy
CPT/HCPCS: 76811

== ENCOUNTER 2023-03-29 12:59 | Outpatient (CLI) | payer MEDICAID, SELFPAY ==
--- NOTE | 2023-03-29 12:59 | US_ITS ---
PROCEDURE: US OB BIOPHYSICAL PROFILE CLINICAL INDICATION: low fluid COMPARISON: US US OB /MATERNAL DETAIL from 03/17/2023 FINDINGS: Transabdominal sonographic images of the uterus were obtained. From her established due date she is 38weeks 1day. The following parameters are obtained: Viable Fetus in the cephalic presentation with a fundal placenta grade 2. Average ultrasound age is 37weeks 3days Estimated weight 3,088g, 6 lb 13 oz Measurements: heart Rate = 130bpm BPD = 37weeks 0 days, 41 percent HC = 38weeks 1day, 29 percent AC = 36weeks 5days, 26 percent FL = 37weeks 3days, 32 percent HC/AC is 1.02 BPD is 0.8 FL/AC is 0.22 34 percentile Amniotic fluid index: 5.79cm Qualitative AFV:2 Breathing movements: 2 Gross Body Movements: 2 Tone: 2 Biophysical profile score: 8 No obvious anomalies evident.Kidneys, four-chamber heart, three-vessel cord appear normal. IMPRESSION: 1. Viable fetus in the cephalic presentation with a fundal placenta grade 2. 2. The fluid is low with an amniotic fluid index of 5.79 cm. MVP is 3.07 cm but only 1.3 cm wide. A 3.8 cm x 2.3 cm pocket is seen on image 22. 3. Biophysical profile is 8/8 with good breathing movement and movement seen. 4. There has been good interval growth with the fetus currently 34th percentile. Dictated by: Tucker Lopez MD 03/29/2023 15:57 Tucker Lopez MD in [facility] 03/29/2023 15:57
== END 2023-03-29 23:59 ==
LOC: RAD 12:59
PROVIDERS: PCP Pediatrics; Visit Provider Obstetrics & Gynecology
DX: O41.03X0 Oligohydramnios, third trimester, not applicable or unspecified (principal); O09.33 Supervision of pregnancy with insufficient antenatal care, third trimester; Z3A.38 38 weeks gestation of pregnancy
CPT/HCPCS: 76816; 76819

== ENCOUNTER 2023-04-02 15:27 | Outpatient (CLI) | payer MEDICAID, SELFPAY ==
--- NOTE | 2023-04-02 15:28 | US_ITS ---
PROCEDURE: US OB BIOPHYSICAL PROFILE CLINICAL INDICATION: BPP , low fluid COMPARISON: US US OB BIOPHYSICAL PROFILE from 03/29/2023 FINDINGS: Transabdominal sonographic images of the uterus were obtained. From her established due date she is 38weeks 5days. The following parameters are obtained: Viable Fetus in the cephalic presentation with a posterolateral placenta grade 2-3. Measurements: heart Rate = 135bpm Amniotic fluid index: 8.52cm, MVP 3.61 cm. Qualitative AFV:2 Breathing movements: 2 Gross Body Movements: 2 Tone: 2 Biophysical profile score: 8 No obvious anomalies evident.Kidneys, stomach, bladder, 4 chamber heart three-vessel cord appear normal. IMPRESSION: 1. Viable fetus in the cephalic presentation with a posterolateral placenta grade 2-3. 2. The fluid is within normal limits with an amniotic fluid index of 8.52 cm, MVP 3.61 cm. 3. Biophysical profile is 8/8 with good breathing movement and movement seen. 4. Limited anatomical scan appears normal. Dictated by: Tucker Lopez MD 04/04/2023 09:12 Tucker Lopez MD in [facility] 04/04/2023 09:13
== END 2023-04-02 23:59 ==
LOC: RAD 15:28
PROVIDERS: PCP Obstetrics & Gynecology; Visit Provider Obstetrics & Gynecology
DX: O41.03X0 Oligohydramnios, third trimester, not applicable or unspecified (principal); Z3A.38 38 weeks gestation of pregnancy
CPT/HCPCS: 76819

== ENCOUNTER 2023-04-11 20:35 | Inpatient (IN) | payer MEDICAID, SELFPAY ==
--- NOTE | 2023-04-11 20:55 | EXP.OB.APHP ---
OB - H&P: HPI Antepartum History of Present Illness Chief complaint: Regular, painful contractions History of present illness: Mrs Rosa Diana is a 22 yo at 40w0d, by LMP, who presented to [facility] L[facility]D with painful contractions that she states started just before coming to the hospital. Baby was active. She has had very limited care; only 3 visits. First ob visit was at 35 weeks. She declined RV GBS swab at her ob visits. History of Present Criteria for establishing EDC:: based on LMP only care: good care Medical complications: neurological (history of seizures and arachnoid cyst) Labs Blood type: A (+) positive Rubella: immune RPR/VDRL: nonreactive GBS status: unknown (patient declined RV GBS swab ) HBsAG: negative PFSH [facility] Disclaimer: The information contained in this section may have been updated after the patient was seen, as this information can be updated by other users. Medical History (Updated 04/11/23 @ 20:59 by Emma Lezama DO) 40 weeks gestation of Active labor Fracture of leg History of seizures Limited care Low amniotic fluid volume Seizure Surgical History (Updated 04/07/23 @ 13:48 by STEVO Garcia) No significant past surgical history Family History Other Coronary artery disease Diabetes Heart attack Hyperlipidemia Hypertension Thyroid disorder Social History Smoking Status: Never smoker second hand exposure: No alcohol intake: never substance use type: denies use current occupational status: employed Travel in the last 8 weeks: None household members: spouse housing: house marital status: Review of Systems Review of Systems Review of systems:: pertinent systems reviewed and negative unless documented below *Genitourinary Comments: + painful uterine contractions Meds Home Medications and Allergies Home Medications Medication Instructions Recorded Confirmed Type vit no.95-ferrous tab PO 03/11/23 04/07/23 History fumarate 28 mg-folic acid 800 mcg tablet () New Prescriptions to Start Prescriptions: Allergies Allergy/AdvReac Type Severity Reaction Status Date / Time No Known Allergies Allergy Verified 04/07/23 13:44 OB - H&P: Exam Constitutional no acute distress and cooperative Routine HEENT Exam Head: Present normocephalic and atraumatic Eye: Absent conjunctivae pink ENT: Present mucous membranes moist Routine Neck Exam Present full ROM Routine Respiratory Exam Present normal respiratory effort Routine Cardiovascular Exam Present RRR Routine Abdominal Exam Present soft (Gravid); Absent tenderness Routine Rectal Exam Patient deferred: visual exam Routine Exam External: Present normal urethra appearance (piercing on right labia majora); Absent erythema, lesions or lacerations Routine Extremities Exam Present edema (+1 bilateral lower extremity edema) and full ROM; Absent calf tenderness Routine Neurological Exam Present alert, moving all extremities and normal speech Routine Psychiatric Exam Present normal affect and cooperative OB - A/P Antepartum (1) 40 weeks gestation of : Status: Acute (2) Active labor: Status: Acute (3) Limited care: Status: Acute (4) History of seizures: Status: Acute (5) Arachnoid cyst: Status: Chronic Additional Plan Additional Information:: Admit to L&D for active labor GBS unknown, Rosa refused GBS swab Anticipate
[2023-04-11 20:56] VITALS: BMI 30.9
[2023-04-11] MEDS: OXYTOCIN/RINGERS LACTATE 30 UNITS/500 ML BAG 40 UNITS IV (21:00)
--- NOTE | 2023-04-11 21:01 | EXP.DN ---
Delivery Note Delivery Date:: 04/11/23 Delivery Time:: 20:34 Was labor medically induced?: No Induction method: none Gestational age (weeks): 40 delivered prior to 39 weeks?: No Justification for early elective delivery:: Active Labor Gender: Male at 1 minute: 7 at 5 minutes: 8 Delivery Procedure:: Mom complete without epidural and delivered spontaneously with RN. Placenta delivered spontaneously and intact. Placenta will be sent to pathology for review. Bilateral labial abrasions were hemostatic. Mom and baby were doing well after delivery. Live male baby (baby's name is undecided) APGARs 7 (1 min), 8 (5 min) EBL 300 mL Placental Delivery Description: Spontaneous
[2023-04-11 21:21] LABS: Basophils % 0.5 % (0.1-2.0); Eosinophils # 0.1 K/mm3 (0.0-0.4); Eosinophils % 0.9 % (0.1-12.0); Hemoglobin 11.3 g/dL (12.2-16.2); Lymphocytes # 1.6 K/mm3 (0.7-4.5); Lymphocytes % 21.2 % (10-50); Mean Corpuscular HGB Conc 32.2 g/dL (31.8-35.4); Mean Corpuscular Hemoglobin 25.9 pg (27.0-31.2); Mean Corpuscular Volume 80.6 fl (81-99); Mean Platelet Volume 9.5 fl (7.4-10.4); Monocytes # 0.3 K/mm3 (0.1-1.0); Neutrophils # 5.4 K/mm3 (1.8-7.8); Neutrophils % 73.4 % (37.0-80.0); Platelet Count 318 K/mm3 (142-424); Red Blood Count 4.35 M/mm3 (4.20-5.40); Red Cell Distribution Width 16.1 % (11.5-17.5); White Blood Count 7.4 K/mm3 (4.8-10.8)
[2023-04-12 04:21] LABS: Benzodiazepines Screen,Urine Negative ng/ml (<200); Cannabinoid Screen,Urine Negative ng/ml (<50)
[2023-04-12 04:22] LABS: Cocaine Screen,Urine Negative ng/ml (<300); Methadone Screen,Urine Negative ng/ml (<300)
[2023-04-12 04:23] LABS: Opiate Screen,Urine Negative ng/ml (<300)
[2023-04-12 04:24] LABS: Phencyclidine Screen,Urine Negative ng/ml (<25)
[2023-04-12 04:28] LABS: Amphetamine/Metha Screen,Urine Negative ng/ml (<1000)
[2023-04-12 04:30] LABS: Barbiturates Screen,Urine Negative ng/ml (<200)
[2023-04-12 06:08] LABS: Basophils % 0.4 % (0.1-2.0); Eosinophils % 0.3 % (0.1-12.0); Hematocrit 31.3 % (37.0-47.0); Lymphocytes # 1.8 K/mm3 (0.7-4.5); Lymphocytes % 17.2 % (10-50); Mean Corpuscular HGB Conc 31.7 g/dL (31.8-35.4); Mean Corpuscular Hemoglobin 25.6 pg (27.0-31.2); Mean Corpuscular Volume 80.6 fl (81-99); Mean Platelet Volume 9.5 fl (7.4-10.4); Monocytes # 0.5 K/mm3 (0.1-1.0); Monocytes % 4.3 % (1.7-9.3); Neutrophils # 8.3 K/mm3 (1.8-7.8); Neutrophils % 77.8 % (37.0-80.0); Platelet Count 304 K/mm3 (142-424); Red Blood Count 3.88 M/mm3 (4.20-5.40); Red Cell Distribution Width 16.1 % (11.5-17.5); White Blood Count 10.6 K/mm3 (4.8-10.8)
--- NOTE | 2023-04-12 08:40 | P.DS_ITS ---
General Admission date:: 04/11/23 Discharge date: 04/12/23 HPI HPI HPI: PPD # 1 s/p Feeling well. No complaints or concerns. Bottle feeding. Appropriate lochia. Voiding without difficulty and passing flatus. Tolerating regular diet. Denies fever/chills, chest pain and shortness of breath. No headaches, vision changes, lightheadedness/dizziness. Admits to lower extremity swelling. No calf pain. Ambulating well ad larua. Hospital Course Hospital Course Hospital Course: Mrs Rosa Diana is a 22 yo at 40w0d, by LMP, who presented to [facility] L[facility]D with painful contractions that she states started just before coming to the hospital. Baby was active. She has had very limited care; only 3 vis its. First ob visit was at 35 weeks. She declined RV GBS swab at her ob visits. She had a spontaneous vaginal delivery on 04/11/23 at 2033. She delivered a live male baby (his name is undecided) weighing 8 lb 10 oz. APGARs 7 (1 min0, 9 (5 min). EBL 300 mL. She did well . Pain controlled. Formula feeding. Lochia appropriate. Voiding without difficulty and passing flatus. Tolerating regular diet. Denies fever/chills, chest pain and shortness of breath. No headaches, dizziness/lightheadedness or vision changes. Vital signs stable, afebrile. Heart regular rate and rhythm. Lungs clear to auscultation. Abdomen soft, nontender. No lower extremity swelling. Ambulating well ad laura. Normal hospital course. She was discharged to home/guest on POD # 1 with instructions to follow-up in the office in 2 weeks or sooner if needed. She desires Nexplanon at 2 week visit. Exam Data for Last 24 hours Vital signs and Labs for Last 24 Hours: Laboratory Results - last 24 hr 04/11/23 20:45: WBC 7.4, RBC 4.35, Hgb 11.3 L, Hct 35.0 L, MCV 80.6 L, MCH 25.9 L, MCHC 32.2, RDW 16.1, Plt Count 318, MPV 9.5, Neut % (Auto) 73.4, Lymph % (Auto) 21.2, [place] % (Auto) 4.0, Eos % (Auto) 0.9, Baso % (Auto) 0.5, Neut # (Auto) 5.4, Lymph # (Auto) 1.6, [place] # (Auto) 0.3, Eos # (Auto) 0.1, Baso # (Auto) 0.0, Blood Type A Positive, Antibody Screen Negative 04/12/23 03:51: Urine Opiates Screen Negative, Urine Methadone Screen Negative, Ur Barbituates Screen Negative, Ur Phencyclidine Scrn Negative, Ur Amphetamines Screen Negative, U Benzodiazepines Scrn Negative, Urine Cocaine Screen Negative, U Marijuana (THC) Screen Negative 04/12/23 05:25: WBC 10.6 D, RBC 3.88 L, Hgb 10.0 L D, Hct 31.3 L, MCV 80.6 L, MCH 25.6 L, MCHC 31.7 L, RDW 16.1, Plt Count 304, MPV 9.5, Neut % (Auto) 77.8, Lymph % (Auto) 17.2, [place] % (Auto) 4.3, Eos % (Auto) 0.3, Baso % (Auto) 0.4, Neut # (Auto) 8.3 H, Lymph # (Auto) 1.8, [place] # (Auto) 0.5, Eos # (Auto) 0.0, Baso # (Auto) 0.0 I & O for Last 24 hours: Intake & Output 04/09/23 04/10/23 04/11/23 04/12/23 23:59 23:59 23:59 23:59 Weight 203 lb Constitutional Constitutional: no acute distress and cooperative *Routine HEENT Exam Head: Present normocephalic and atraumatic Eye: Absent conjunctivae pink ENT: Present mucous membranes moist *Routine Neck Exam Neck: Present full ROM *Routine Respiratory Exam Respiratory: Present CTA bilaterally and normal respiratory effort *Routine Cardiovascular Exam Cardiovascular: Present RRR *Routine Abdominal Exam Abdominal: Present soft and normoactive bowel sounds; Absent tenderness or distended Comments: Uterine fundus firm and below umbilicus *Routine Rectal Exam Patient deferred: visual exam *Routine Exam Patient deferred: external exam *Routine Extremities Exam Extremities: Present edema (+1 bilateral lower extremity edema) and full ROM; Absent calf tenderness *Routine Neurological Exam Neurological: Present alert, moving all extremities and normal speech Routine Psychiatric Exam Psychiatric: Present normal affect and cooperative Results Data Completed and Pending Labs on day of discharge: Labs from last 24 hours 04/12/23 04/12/23 04/11/23 05:25 03:51 20:45 WBC 10.6 D 7.4 RBC 3.88 L 4.35 Hgb 10.0 L D 11.3 L Hct 31.3 L 35.0 L MCV 80.6 L 80.6 L MCH 25.6 L 25.9 L MCHC 31.7 L 32.2 RDW 16.1 16.1 Plt Count 304 318 MPV 9.5 9.5 Neut % (Auto) 77.8 73.4 Lymph % (Auto) 17.2 21.2 [place] % (Auto) 4.3 4.0 Eos % (Auto) 0.3 0.9 Baso % (Auto) 0.4 0.5 Neut # (Auto) 8.3 H 5.4 Lymph # (Auto) 1.8 1.6 [place] # (Auto) 0.5 0.3 Eos # (Auto) 0.0 0.1 Baso # (Auto) 0.0 0.0 Urine Opiates Screen Negative Urine Methadone Screen Negative Ur Barbituates Screen Negative Ur Phencyclidine Scrn Negative Ur Amphetamines Screen Negative U Benzodiazepines Scrn Negative Urine Cocaine Screen Negative U Marijuana (THC) Screen Negative Blood Type A Positive Antibody Screen Negative DS: Diagnosis Discharge Diagnosis (1) 40 weeks gestation of : Status: Acute Code(s): Z3A.40 - 40 weeks gestation of (2) Active labor: Status: Acute (3) Limited care: Status: Acute Code(s): O09.30 - Supervision of with insufficient care, unspecified trimester Qualifiers: Trimester: third trimester Qualified Code(s): O09.33 - Supervision of with insufficient care, third trimester (4) History of seizures: Status: Acute Code(s): Z87.898 - Personal history of other specified conditions (5) Arachnoid cyst: Status: Chronic Code(s): G93.0 - Cerebral cysts Meds Home Medications and Allergies Home Medications Medication Instructions Recorded Confirmed Type vit no.95-ferrous 1 tab PO DAILY Supplement 03/11/23 04/12/23 History fumarate 28 mg-folic acid 800 mcg tablet () New Prescriptions to Start Prescriptions: Allergies Allergy/AdvReac Type Severity Reaction Status Date / Time No Known Allergies Allergy Verified 04/07/23 13:44 Discharge Plan Disposition Patient Disposition: Home, Self-Care Condition: Good Discharge Order Discharge Orders: Discharge Order (Routine); Ordered 04/12/23 Ordered By: Emma Lezama Follow up Plan Follow up with: Emma Lezama DO [Staff Physician] - 04/26/23 3:00 pm Prescriptions/Medication Reconciliation: Continued PNV cmb#95-ferrous fumarate-FA [] 28 mg iron- 800 mcg tablet 1 tab PO DAILY Problem Reconciliation Problems Reviewed?: Yes Patient Discharge Instructions ACTIVITY: Limited activity DIET: continue same diet and regular diet Additional Instructions: Discharge: 1. Take 800 mg Ibuprofen every 8 hours as needed for pain. You can also take 500-1000 mg of Tylenol in between doses, every 6-8 hours. 2. Nothing in the vagina for 6 weeks - no intercourse, douching or tampons. No tub baths/hot tubs or swimming pools 3. Reasons to return to L&D or call On-Call doctor - fever (greater than 100.4) - heavy vaginal bleeding (soaking through 1 pad in less than 2 hours) - vaginal discharge (malodorous and/or purulent) - severe headaches not resolved by medication or rest and leg tenderness/edema 4. depression/blues - Normal to feel anxious/overwhelmed for first 2 weeks - Talk to your doctor if: severe anxiety, trouble bonding with baby, withdrawing from other family members, thoughts of harming yourself or others Emma Lezama DO [facility] [phone] Patient Instructions: Depression, Labor and Delivery, Vaginal , Hemorrhage, DI for Pre-eclampsia Providers Primary Care Provider: Fawad Gutierrez Admit Provider: Emma Lezama Attending Provider: Emma Lezama
--- NOTE | 2023-04-12 09:44 | SW/DCPLANNER ---
I received referral for this patient regarding: lost custody of other child, lives w/ family and does not interact w/ infant. Patient did not have first apt till 35 weeks. Patient stated this was due to her MD in [place] (Dr Bonilla) not making her an OB apt w/ [facility]. Patient delivered at [facility] in 2019 and signed out AMA and has since lost her rights to infant 2019. Patient delivered infant male (first name unknown) last name Lebron on 04/11/23. 's father was present at the time of my visit (Flaquito Diana 10/25/99) and answers most questions for patient. Patient, Flaquito, Flaquito parents (Bucky and Monica Simon) and their two children will reside at [address] [place] [address] in [place] [address]. Patient's contact number is [phone]. Patient stated that she will be established w/ WIC. Patient stated that she has the following items at home: crib, carseat, clothing, diapers and will be bottle feeding. PED MD will be Dr Cassidy and patient stated that she will have transportation to all follow up appointments. Per nursing staff patient is wanting to be discharged today 04/12/23 but infant will not be discharged today. Per OB nursing staff (Olga) patient/father are not appropriate w/ : limited care, feeding baby while laying flat in bassinet, limited eye contact, ect.. I have reported this case to Central Intake ID# [id number].
[2023-04-12 09:58] VITALS: BMI 30.9
== END 2023-04-12 14:37 | disposition home or self-care (01) | DRG 807 ==
PROVIDERS: Admitting Provider Obstetrics & Gynecology; PCP Family Medicine; Visit Provider Obstetrics & Gynecology
DX: O80 Encounter for full-term uncomplicated delivery (principal); Z37.0 Single live birth; Z3A.40 40 weeks gestation of pregnancy
CPT/HCPCS: 59409; 36415; 80307; 85025; 86850; 88307